=== PATIENT | male | born 1985 | race Caucasian/White ===

== ENCOUNTER 2022-02-04 07:22 | Day surgery (SDC) | payer OTHER ==
[~2022-02-04] VITALS: Ht 177.8 cm; Wt 91.6 kg
[2022-02-04] VITALS (7 sets, daily range): BP systolic 84–119; BP diastolic 52–77
--- NOTE | 2022-02-04 06:50 | NUR ---
Patient arrived to the ANR suite, identification and demographics confirmed. Patient to room 10, AAO and ambulatory, vitals obtained, ID/allergy/fall bands placed, changed into hospital gown, procedure and timeline explained. All questions answered, patient presents no concerns at this time.
--- NOTE | 2022-02-04 07:26 | NUR ---
Dr. Addison telephoned with patient intake information including usage, dose, last dose/time taken and initial vital signs. Patient history and allergies reviewed with MD. Orders received for 10 mg PO Valium and 0.1 mg PO Clonidine now. Will reassess per protocol in 1.5 hours and update MD with assessment and vitals.
[2022-02-04 07:34] LABS: HEMATOCRIT 41.7 % (39.0-50.0); HEMOGLOBIN 13.6 g/dl (14.0-18.0); IMMATURE GRANULOCYTES 0.3 % (0.0-5.0); MEAN CORPUSCULAR HGB 28.7 pG CALC (26.0-32.0); MEAN CORPUSCULAR HGB CONC 32.6 g/dL CAL (32.0-36.0); NEUT# 2.97 thou/uL (1.82-7.42); RED BLOOD COUNT 4.74 mill/uL (4.70-6.10); RED CELL DISTRI WIDTH 13.4 % (11.5-15.5)
[2022-02-04 08:06] LABS: ALBUMIN 4.3 g/dL (3.2-5.0); ALKALINE PHOSPHATASE 139 u/l (38-126); ANION GAP 14 (6-22 (CALC)); BILIRUBIN, TOTAL 0.3 mg/dL (0.0-1.4); BUN 15 mg/dL (9-20); BUN/CREATININE RATIO 18 (12-20 (CALC)); CARBON DIOXIDE 31 mmol/l (22-30); CHLORIDE 100 mmol/l (95-108); CREATININE 0.9 mg/dL (0.7-1.3); GFR FOR AFR.AMER. > 60 ML/MIN (>=60 (CALC)); GFR OTHER RACES > 60 ML/MIN (>=60 (CALC)); POTASSIUM 4.4 mmol/l (3.5-5.1); SGOT/AST 120 u/l (17-59); SODIUM 141 mmol/l (137-146); TOTAL PROTEIN 7.9 g/dL (6.3-8.2)
--- NOTE | 2022-02-04 08:30 | NUR ---
Patient resting comfortably in bed. Easily aroused to voice, maintains focus, drifts back to sleep. No signs of active withdrawal or distress noted at this time, VSS.
--- NOTE | 2022-02-04 09:34 | NUR ---
Dr. Garcia telephoned with reassessment and new vital signs. Reviewed initial Valium and Clonidine dose with MD. Orders received for additional 5 mg PO Valium and 0.1 mg PO Clonidine now. Will reassess per protocol in 1.5 hours and update MD with assessment and vitals.
--- NOTE | 2022-02-04 10:30 | NUR ---
Patient resting comfortably in bed. Easily aroused, maintains focus, drifts back to sleep. No signs of active withdrawal or distress noted at this time. Continuous SPO2 and Q 30 minute BP in progress.
--- NOTE | 2022-02-04 12:32 | NUR ---
Induction Note Patient to ANR procedure room. Time out performed at 1232. Patient placed on monitors, Nicole hugger, bilateral wrist restraints applied for ET tube protection. Versed 5mg given IV push at 1233 Tourniquet applied to LEFT arm Lidocaine 100mg given at 1234 IV push followed by Rocoronium 10mg at 1234 IV push and held for 90 seconds. Propofol bolus of 120 mg given at 1236 IV push. Succinylcholine 80mg given IV push at 1237. Smooth intubation AT 1240 with 7.5 ETT @ 22L.Positive CO2. Positive Auscultation for air exchange. Patient placed on ventilator for spontaneous ventilation. Placed on Propofol IV drip at 1238. OG inserted AT 1242. Positive air on auscultation. Positive gastric content. Stomach washed at this time.
--- NOTE | 2022-02-04 13:05 | NUR ---
OG close note Stomach washed at this time. Naltrexone 50 mg with Clonidine ZERO mg via OG tube. OG will be clamped for 45 minutes.
--- NOTE | 2022-02-04 13:50 | NUR ---
OG open note OG open at this time. Gastric content draining into drainage bag. OG to drain for 45 minutes. Propofol will be titrated down based on patient.
--- NOTE | 2022-02-04 14:36 | NUR ---
OG close note Stomach washed at this time. Naltrexone 50 mg with Clonidine 0.2 mg via OG tube. OG will be clamped for 45 minutes.
--- NOTE | 2022-02-04 16:08 | NUR ---
OG close note Stomach washed at this time. Naltrexone 50 mg with Clonidine 0.2 mg via OG tube. OG will be clamped for 45 minutes.
[2022-02-04] MEDS ORDERED: NALTREXONE50 MG PO (16:09)
[2022-02-04] MEDS ORDERED: CLONIDINE0.1 MG PO (16:10)
[2022-02-04] MEDS ORDERED: KLONOPIN2 MG PO (16:10)
--- NOTE | 2022-02-04 17:58 | NUR ---
OG close note Stomach washed at this time. Naltrexone ZERO mg with Clonidine 0.2 mg via OG tube. OG will be clamped for 45 minutes.
--- NOTE | 2022-02-04 18:41 | NUR ---
Extubation note Closing medications given Benadryl 50mg IV push, Decadron 10mg IV push,Magnesium 4 grams IV, Zofran 8mg IV push, Octreotide 100mcg SC. Stomach washed out prior to extubation. Suctioned gastric content. OG removed. Garcia removed. Patient extubated. Propofol Discontinued. Wrist restraints removed. Nicole hugger Removed. See ANR Moderate sedate recovery record for further notes and assessment.
--- NOTE | 2022-02-04 19:10 | NUR ---
RECEIVED REPORT FROM MARKO MAURER.
--- NOTE | 2022-02-04 19:20 | NUR ---
5160-- Patient to room 288 in no acute distress. Transfer of care to Med-chemical radiation technicianMARKO Deleon at bedside. IV sites and medical history discussed. 2L NC placed per orders, IVF to continue at 100ml/hr. VSS: 97.2, 95/62, 90, 18 97%. Patient resting comfortably, no adventitious breath sounds appreciated. Bed alarm set. Call light in reach. See chart/EMAR for procedural details and assessments. Handoff of care at the time of this note.
--- NOTE | 2022-02-04 20:08 | NUR ---
PT RESTING WITH EYES CLOSED. PT STILL DROWSY FROM PROCEDURE. EVEN AND UNLABORED RESPIRATIONS: CLEAR LUNG SOUNDS UPON AUSCULTATION. O2 @ 2L VIA NASAL CANNULA IN PLACE. HYPOACTIVE BOWEL SOUNDS X4 QUADRANTS. IV SITES FLUSHED: HEALTHY AND PATENT. SAFETY PRECAUTIONS IN PLACE WITH CALL LIGHT IN REACH.
--- NOTE | 2022-02-04 21:50 | NUR ---
PT RESTLESS/AGITATED. PT C/O SEVERE NAUSEA: ADMINISTERED NAUSEA MED PER EMAR. SAFETY PRECAUTIONS IN PLACE WITH CALL LIGHT IN REACH.
--- NOTE | 2022-02-04 23:54 | NUR ---
PT RESTING WITH EYES CLOSED. O2 @ 2L VIA NASAL CANNULA IN PLACE. NO SIGNS OF DISTRESS NOTED. IV SITE HEALTHY AND PATENT, INFUSING IV FLUIDS PER ORDER. BED ALARM ACTIVE AND SAFETY PRECAUTIONS IN PLACE. CALL LIGHT IN REACH.
[2022-02-05 03:44] VITALS: BP 123/83
--- NOTE | 2022-02-05 04:28 | NUR ---
PT ON BED WAKING UP UPON CAN SORTER ENTER THE ROOM. PT A&O X2, CLEAR SPEECH. IV SITES FLUSHED: # 22 LF WRIST, # 20 RT EXTERNAL JUGULAR, HEALTHY AND PATENT. ORAL FLUIDS OFFERED: PT DRINKING WITHOUT SWALLOWING PROBLEMS. ADMINISTERED SCHEDULED MEDS. NO DISTRESS NOTED. BED ALARM ACTIVE AND SAFETY PRECAUTIONS IN PLACE. CALL LIGHT IN REACH.
[2022-02-05 07:09] LABS: HEMATOCRIT 41.7 % (39.0-50.0); IMMATURE GRANULOCYTES 0.7 % (0.0-5.0); MEAN CELL VOLUME 85.3 fL CALC (80.0-100.0); MEAN CORPUSCULAR HGB 28.6 pG CALC (26.0-32.0); MEAN CORPUSCULAR HGB CONC 33.6 g/dL CAL (32.0-36.0); NEUT# 11.3 thou/uL (1.82-7.42); RED BLOOD COUNT 4.89 mill/uL (4.70-6.10); RED CELL DISTRI WIDTH 13.1 % (11.5-15.5)
[2022-02-05 07:49] VITALS: BP 98/55
--- NOTE | 2022-02-05 08:00 | NUR ---
RECEIVED REPORT FROM NEEDLE LOOM OPERATOR HELPER RODEO CLOWN. PATIENT RESTING IN BED IN RIGHT LATEREAL RECUMBENT POSITION WITH EYES CLOSED. PATIENT IS IN ROOM AIR, A&O. ASSESSMENT COMPLETED. BP WAS LOW, PUT BACK ON PRN LACTATED RINGERS @ 100 MLS/HR. NO SIGNS OF DISTRESS NOTED NOR VERBALIZED AT THIS TIME. CALL LIGHT WITHIN REACH, FALL AND SAFETY PRECAUTIONS IN PLACE.
[2022-02-05 08:09] LABS: ALBUMIN 4.1 g/dL (3.2-5.0); ALKALINE PHOSPHATASE 143 u/l (38-126); ANION GAP 18 (6-22 (CALC)); BILIRUBIN, TOTAL 0.4 mg/dL (0.0-1.4); BUN 13 mg/dL (9-20); BUN/CREATININE RATIO 16 (12-20 (CALC)); CARBON DIOXIDE 27 mmol/l (22-30); CHLORIDE 98 mmol/l (95-108); CREATININE 0.8 mg/dL (0.7-1.3); GFR FOR AFR.AMER. > 60 ML/MIN (>=60 (CALC)); GFR OTHER RACES > 60 ML/MIN (>=60 (CALC)); POTASSIUM 4.1 mmol/l (3.5-5.1); SGOT/AST 68 u/l (17-59); SODIUM 138 mmol/l (137-146)
[2022-02-05 08:17] VITALS: BP 98/55
--- NOTE | 2022-02-05 12:00 | NUR ---
PATIENT RESTING IN BED ON RIGHT LATERAL RECUMBENT POSITION, WITH EYES CLOSED. PATIENT DENIES ANY PAIN, NO OTHER SIGNS OF DISTRESS NOTED AT THIS TIME. PATIENT IS DROWSY, WILL GET UP TO SHOWER AFTER EATING LUNCH. BED IN LOWEST POSITION, CALL LIGHT WITHIN REACH.
--- NOTE | 2022-02-05 13:50 | NUR ---
Discharge instructions given. Patient verbalizes understanding of same. Discharged in stable condition via Wheelchair to Home with staff. All belongings sent with pt.
== END 2022-02-05 13:50 | disposition home or self-care (01) | DRG 897 ==
LOC: ANR-I 07:22 → ANR 07:22 → MS2 18:59 → ANR 02-05 13:50
PROVIDERS: ATTEND Anesthesiology
DX: F11.20 Opioid dependence, uncomplicated (principal); Z72.0 Tobacco use
CPT/HCPCS: J2354